=== PATIENT | male | born 1940 | race Caucasian/White ===

== ENCOUNTER 2025-07-04 10:39 | Inpatient (IN) | payer OTHER, SELFPAY ==
[2025-07-04] VITALS (12 sets, daily range): BP systolic 115–173; BP diastolic 37–66; BMI 30.5
[2025-07-04] MEDS: ZOFRAN 4 MG IV (06:17)
[2025-07-04] MEDS: MORPHINE SULFATE 4 MG IV (06:18)
--- NOTE | 2025-07-04 06:25 | ED.GENMED ---
History of Present Illness
General
Chief Complaint: Flank Pain
Source: patient
Exam Limitations: none
Time Seen by Provider: 07/04/25 06:07
Nursing documentation reviewed up to this point in time: agreed with
History of Present Illness
History of Present Illness:
The patient is an 85-year-old man with a past medical history of A-fib, hypertension and hyperlipidemia who comes in with complaints of fairly sudden onset of right flank pain that started at 8:00 last night and is associated with nausea. Patient
reports constant severe pain which she describes as 10 out of 10. There is no radiation of pain. He denies vomiting, chills and fever.
Past History
Past History
ED Past Medical History: Arrthythmia, CAD, HTN, Hypercholesterolemia and Other (Gastritis)
ED Past Surgical History: Bowel resection and Cardiac (Stent)
Social History
Tobacco: Former smoker
Alcohol: Other (One glass of wine)
Drug: None
Personal: Other
Living: with family
Employment: Other
Family History
Family History: Other
Review of Systems
Review of Systems
Allergies reviewed?: Yes
All Other Systems: ROS reviewed and negative except as documented in HPI and ROS
Constitutional: Reports no symptoms
EENT: Reports no symptoms
Respiratory: Reports no symptoms
Cardiac: Reports no symptoms
ABD/GI: Reports nausea
: Reports flank pain
Musculoskeletal: Reports no symptoms
Skin: Reports no symptoms
Neurological: Reports no symptoms
Endocrine: Reports no symptoms
Hematologic/Lymphatic: Reports no symptoms
Psychiatric: Reports no symptoms
Phy Exam
Physical Exam
Physical Exam:
Physical Exam
General: Patient appears nontoxic but uncomfortable appearing, he is holding his right flank.
Neck: supple. no meningeal signs. normal posterior pharynx
Heart: s1/s2 regular rate and rhythm,
Lungs: no acute respiratory distress. clear bilaterally. No pulsatile mass
Abdomen: normal bowel sounds. not tender. no CVAT. No pulsatile mass
Neuro: alert and oriented. no focal neurological deficits
Skin: no rash
Psychiatric: well kept. interactive and cooperative
Extremities: no edema. no calf tenderness. negative homans. good distal pulses
Course
Orders/Labs/Results
Orders:
Orders
07/04/25 05:58
IV Insert/Care/Rem.- Treatment PRN
07/04/25 06:02
Urinalysis Reflex To Culture Urgent
Date Specimen was Collected: 07/04/25
Time Specimen was Collected: 05:59
Urine Microscopic Reflex Cult Urgent
Urine Culture Urgent
MARIAM Source: U
Specimen Description:
Date Specimen was Collected: 07/04/25
Time Specimen was Collected: 05:59
07/04/25 06:07
Complete Blood Count/With Diff Urgent
Comprehensive Metabolic Panel Urgent
07/04/25 06:15
Morphine Sulfate 4 mg .ROUTE .STK-MED ONE
Ondansetron Injectable [Zofran] 4 mg .ROUTE .STK-MED ONE
07/04/25 06:16
CT Abd/pel Without Iv Or Oral Urgent
Comment:
Reason For Exam: R flank pain
Morphine Sulfate 4 mg IV NOW STA
Ondansetron Injectable [Zofran] 4 mg IV NOW STA
07/04/25 07:44
0.9% Sodium Chloride 500 ml [Nss] 500 ml IV BOLUS
07/04/25 07:55
HYDROmorphone [Dilaudid] 0.5 mg IV NOW STA
07/04/25 09:37
HYDROmorphone [Dilaudid] 1 mg IV NOW STA
07/04/25 09:47
UROLOGY CONSULT Routine
Consulting Provider: Silvestre Ennis
Was physician already notified: Yes
Comment: 4.5 mm calculus at the right ureterovesical junction
07/04/25 09:48
Add On - Microbiology Urgent
Tests Added?: urine culture
07/04/25 10:00
CefTRIAXone [Rocephin] 1,000 mg IV Q24H
Abnormal Lab Results
07/04/25 07/04/25
06:02 06:07
WBC 10.9 H 10^3/uL
(4.8-10.8)
MPV 10.5 H fL
(7.4-10.4)
Absolute Neuts (auto) 8.6 H 10^3/uL
(1.4-6.5)
Neutrophils % 79.0 H %
(42.2-75.2)
Lymphocytes % 16.0 L %
(20.5-51.1)
Glucose 146 H mg/dl
(70-99)
Ur Occult Blood Reflex 2+ A
(Negative)
Urine RBC 7-10 A /HPF
(0-2)
Urine Bacteria (Reflex) Few A
(Negative)
Urine Albumin (Reflex) 2+ A
(Neg - Trace)
07/04/25 06:07
07/04/25 06:07
Vital Signs
Initial and Last Documented VS:
Initial Vital Signs
Temp Pulse Resp BP Pulse Ox
97.5 F 59 22 173/64 97
07/04/25 05:27 07/04/25 05:27 07/04/25 05:27 07/04/25 05:27 07/04/25 05:27
Last Documented Vital Signs
Temp Pulse Resp BP Pulse Ox
97.5 F 49 16 133/37 93
07/04/25 07:37 07/04/25 09:15 07/04/25 09:15 07/04/25 08:00 07/04/25 09:15
MDM/Problems Addressed
Differential Diagnosis Includes:
Acute pyelonephritis, acute renal colic, acute diverticulitis
MDM/Problems Addressed:
The patient presents with acute right flank pain and nausea
Chronic conditions affecting care: Arrhythmia
Acute Exacerbation and/or Progression of Chronic Illness: Arrhythmia
*Radiology
Radiology exam reviewed: radiology read reviewed
*Pulse Oximetry
SaO2: 97
Oxygen Mode of Delivery: Room air
Patient hypoxic: no
*EKG
Interpreted by ED Provider?: NA
*Cylinder Devalver Interpretation
Rate: normal
Interpretation: normal
Rhythm: sinus
*Critical Care Note
Total Time (30-74mins, 75-104mins- exclusive of procedures): Not Applicable
Data Reviewed
Review of Other/Old Records Reveals: Discharge Summary (Patient admitted with A-fib with RVR 2018)
Source: patient
Patient Management
Social determinants of health affecting care: Living situation and Strong social support
Discussion with other providers: Hospitalist
ED Attending Note
-
Portions of this chart may have been created with voice recognition software.� Occasional wrong word or��sound alike� substitutions may have occurred due to the inherent limitations of voice recognition software.
Discharge Plan
Departure
Patient Disposition: Admit
Date of Disposition: 07/04/25
Time of Disposition: 09:43
Admit to: Med/Surg
Presentation/result/management discussed w/ accepting MD/DO: Hospitalist
Patient with high blood pressure during this ER visit?: Yes
Condition: Good
Covid-19: Not Applicable
Discharge Problem:
Renal colic on right side
Prescriptions:
No Action
prednisone 20 MG tablet
20 mg PO DAILY@1200
rosuvastatin 10 MG tablet
10 mg PO HS
omeprazole magnesium [Prilosec OTC] 20 MG tablet,delayed release (DR/EC)
20 mg PO BID@0800,1200
prednisone 20 MG tablet
40 mg PO DAILY
acetaminophen [Tylenol Extra Strength] 500 MG tablet
500 - 1,000 mg PO Q4HPRN PRN (Reason: pain)
tamsulosin 0.4 MG capsule
0.4 mg PO DAILY Qty: 30 0RF
levofloxacin 500 MG tablet
500 mg PO DAILY Qty: 3 0RF
valsartan 320 MG tablet
320 mg PO DAILY
metoprolol tartrate 25 MG tablet
25 mg PO BID
aspirin 81 MG tablet,delayed release (DR/EC)
81 mg PO DAILY
colchicine 0.6 MG tablet
0.6 mg PO DAILY Qty: 14 0RF
Referrals:
Jose Hamilton DO [Family Provider, Family Practice]
Interventions
Interventions:
*Risk Screen - Suicide Last Done: 07/04/25 05:27
*General Assessment Last Done: 07/04/25 05:27
*Neglect/Abuse Screening Last Done: 07/04/25 05:27
*ED- Fall Risk Assessment Last Done: 07/04/25 05:58
*ED COVID-19 Vaccine History Last Done: 07/04/25 05:27
SV-Jlmgki-Uiumhekaoq Assessment Last Done: 07/04/25 05:54
ED-Male Genitourinary Assessment Last Done: 07/04/25 05:54
Discharge Date and Time
Print Language: AUSTRALIAN
[2025-07-04 06:31] LABS: Urine Character Slightly Cloudy (Clear)
[2025-07-04 06:35] LABS: Hematocrit 42.0 % (39.0-52.0); Hemoglobin 14.7 g/dL (13.0-18.0); Mean Corp Hgb Conc. 35.0 g/dL (33.0-37.0); Mean Corpuscular Volume 85.7 fL (80.0-94.0); Nucleated Red Blood Cells % 0 % (-); Platelet Count 173 10^3/uL (130-400); Red Cell Dist. Width 12.2 % (11.5-14.5)
[2025-07-04 06:39] LABS: Urine Squamous Cell None seen /LPF (Few)
[2025-07-04 06:45] LABS: ALT (SGPT) 19 U/L (0-50); AST (SGOT) 27 U/L (17-59); Albumin 4.8 g/dl (3.5-5.0); Alkaline Phosphatase 111 U/L (38-126); Blood Urea Nitrogen 19 mg/dl (9-20); Calcium 9.3 mg/dl (8.4-10.2); Carbon Dioxide 22 mmol/L (22-30); Chloride 107 mmol/L (98-107); Glucose 146 mg/dl (70-99); Potassium 4.3 mmol/L (3.5-5.1); Sodium 138 mmol/L (135-145); Total Protein 7.6 g/dl (6.3-8.2); eGFR > 60.00
[2025-07-04 06:48] LABS: Urine White Cell None Seen /HPF (0-5)
[2025-07-04] MEDS: NSS 500 IV (08:08)
[2025-07-04] MEDS: DILAUDID 0.5 MG IV (08:10)
--- NOTE | 2025-07-04 10:21 | HPS.HSE ---
Family Physician
-
Family Physician: Jose Hamilton
Chief Complaint
-
R flank pain
History of Present Illness
85yo M with PMHx of PAF not on AC, pericarditis, prostatitis, spematocele, CAD s/p PCI, HX of Salmonella UTI came with sudden onset of R flank pain traveling towards his groin started 12h before admission found 4.5 mm calculus at the right
ureterovesical junction with associated mild right hydronephrosis. No recent fevers noted. Due to poor pain control - admitted to the hospital
Medical History
Past Medical History
Past Medical History: Reports Other
Additional Past Medical History:
see above
Past Surgical History: Reports None
Social History
Tobacco: Non-smoker
Alcohol: Occasional
Drug: None
Family History
Family History: Not pertinent
Allergies / Home Medications
Allergies reflects when Allergies were last updated in [facility].
Home Medications with original date entered in [facility]
Allergy/Medication List:
Allergies
Allergy/AdvReac Type Severity Reaction Status Date / Time
No Known Allergies Allergy Verified 07/04/25 05:30
Home Medications - not updated at the time of admission
acetaminophen 500 mg tablet (Tylenol Extra Strength) 500 - 1,000 mg PO Q4HPRN PRN pain 12/11/17
omeprazole magnesium 20 mg tablet,delayed release (Prilosec OTC) 20 mg PO BID@0800,1200 with prednisone 12/11/17
prednisone 20 mg tablet 20 mg PO DAILY@1200 12/11/17
prednisone 20 mg tablet 40 mg PO DAILY Inflammation 12/11/17
rosuvastatin 10 mg tablet 10 mg PO HS 12/11/17
levofloxacin 500 mg tablet 500 mg PO DAILY ##3 12/14/17
tamsulosin 0.4 mg capsule 0.4 mg PO DAILY ##30 12/14/17
aspirin 81 mg tablet,delayed release 81 mg PO DAILY 12/16/17
colchicine 0.6 mg tablet 0.6 mg PO DAILY #14 tabs 12/16/17
metoprolol tartrate 25 mg tablet 25 mg PO BID 12/16/17
valsartan 320 mg tablet 320 mg PO DAILY 12/16/17
Review of Systems
-
History Source: Patient
A 12 point ROS was completed and negative except as noted: Yes
: Reports See HPI
Physical Exam
Vital Signs
Vital Signs
Temp Pulse Resp BP Pulse Ox
97.5 F 49 16 133/37 93
07/04/25 07:37 07/04/25 09:15 07/04/25 09:15 07/04/25 08:00 07/04/25 09:15
Physical Exam
General: No Apparent Distress, Comfortable and Conversant
HEENT: NormoCephalic, Anicteric and Moist mucous membranes
Respiratory: Clear; No Wheezes or Crackles
Cardiac: S1/S2 and Regular Rhythm; No Tachycardia
GI: Soft, Non Tender and Non Distended
Genito-urinary: No costovertebral tender
Musculoskeletal: No Clubbing, No Cyanosis and No Edema
Skin: Warm; No Rash or Jaundice
Neuro: Awake, Alert, Oriented and AO x 3
Psych: Calm
Laboratory Results
-
07/04/25 06:07
07/04/25 06:07
Laboratory Results
Total Bilirubin 0.8 mg/dl (0.2-1.3) 07/04/25 06:07
AST 27 U/L (17-59) 07/04/25 06:07
ALT 19 U/L (0-50) 07/04/25 06:07
Alkaline Phosphatase 111 U/L (38-126) 07/04/25 06:07
Data Reviewed
-
CT Scan: Report Reviewed by me
Lab Data: Labs Reviewed by me
Impression/Plan
-
A/P:
#R UVJ obstructing nephrolithiasis
#mild right hydronephrosis.
#BPH
#Simple upper pole left renal cyst
#Leukocytosis
IVF
Tamsulosin
Ceftriaxone pending Ucx
Pain mgmt
Urology consult
Follow Cr
check coag panel for possible intervention, keep NPO meanwhile
#CAD s/p PCI
#HLD
#PAF
#Essential HTN
#GERD
telemetry
cont home meds
DVT ppx Lovenox
DNR/DNI - discussed in details with patient
I have spent at least 75min reviwing chart, test results, communication with conultants and providing direct patient care
--- NOTE | 2025-07-04 10:37 | CM ---
CM reviewed chart, patient presents to ED with complaints of fairly sudden onset of right flank pain that started at 8:00 last night and is associated with nausea.
Patient seen bedside, initial assessment completed. Patient resides with his step-son in a multiple level home, bedroom on second floor, one step to enter home. Patient denies use of DME, denies VN/SNF hx. PCP Jose Hamilton, Pharmacy [facility],
confirms prescription coverage. Patient denies insecurities at home. CM will continue to follow for all discharge planning needs.
Plan; home, watch for potential VN needs
[2025-07-04] MEDS: DILAUDID 1 MG IV (10:46)
[2025-07-04] MEDS: ROCEPHIN 1000 MG IV (10:47)
--- NOTE | 2025-07-04 10:57 | CONS.URO ---
Consultation
-
Date/Time Consultation Performed: 07/04/25 1045
Performing Provider: Peffer
Reason for Consultation: Kidney stone
Medical History
History of Present Illness
85M admitted with intractable pain from 4mm R distal ureteral stone
No prior kidney stone episodes
No fever/chills
No signs of sepsis
Past Medical History
Past Medical History: Other (PAF not on AC, pericarditis, prostatitis, spematocele, CAD s/p PCI)
Social History
Tobacco: Non-smoker
Alcohol: Occasional
Family History
Family History: Reviewed & Not Pertinent
Allergies/Home Medications
Allergies
Allergy/AdvReac Type Severity Reaction Status Date / Time
No Known Allergies Allergy Verified 07/04/25 05:30
Home Medications
�Medication �Instructions �Recorded �Confirmed �Type
acetaminophen 500 mg tablet 500 - 1,000 mg PO Q4HPRN PRN pain 12/11/17 12/16/17 History
(Tylenol Extra Strength)
omeprazole magnesium 20 mg 20 mg PO BID@0800,1200 with 12/11/17 12/16/17 History
tablet,delayed release (Prilosec prednisone
OTC)
prednisone 20 mg tablet 20 mg PO DAILY@1200 12/11/17 12/16/17 History
prednisone 20 mg tablet 40 mg PO DAILY Inflammation 12/11/17 12/16/17 History
rosuvastatin 10 mg tablet 10 mg PO HS 12/11/17 12/16/17 History
levofloxacin 500 mg tablet 500 mg PO DAILY ##3 12/14/17 12/16/17 Rx
tamsulosin 0.4 mg capsule 0.4 mg PO DAILY ##30 12/14/17 12/16/17 Rx
aspirin 81 mg tablet,delayed 81 mg PO DAILY 12/16/17 12/16/17 History
release
colchicine 0.6 mg tablet 0.6 mg PO DAILY #14 tabs 12/16/17 Rx
metoprolol tartrate 25 mg tablet 25 mg PO BID 12/16/17 12/16/17 History
valsartan 320 mg tablet 320 mg PO DAILY 12/16/17 12/16/17 History
Physical Exam
Vital Signs
Vital Signs
Temp Pulse Resp BP Pulse Ox
97.5 F 49 16 133/37 93
07/04/25 07:37 07/04/25 09:15 07/04/25 09:15 07/04/25 08:00 07/04/25 09:15
Lab / Testing Results
Laboratory Results
07/04/25 06:07
07/04/25 06:07
Physical Exam
General: Well Developed, Well Nourished and No Apparent Distress
Respiratory: Non Labored Respirations
Genito-urinary: Costovertebral Angle Tend
Neuro: AO x 3
Psych: Calm and Intact Judgement
Assessment / Plan
-
85M with intractable pain from R distal ureteral stone
No signs of infection
- OR today for ureteroscopy, stone removal, stent placement
- Ceftriaxone for prophylaxis
- Discharge today post procedure is likely appropriate
[2025-07-04 11:22] LABS: APTT 31.4 Sec (23.4-35.0); INR 1.20; PT 15.5 Sec (11.4-14.6)
--- NOTE | 2025-07-04 13:53 | W.DCSUMMARY ---
Discharge Summary
Discharge Data
Date of Admission: 07/04/25
Date of Discharge: 07/04/25
-
Pending Results: No
Hospital Course
85yo M with PMHx of PAF not on AC, pericarditis, prostatitis, spermatocele, CAD s/p PCI, HX of Salmonella UTI came with sudden onset of R flank pain traveling towards his groin started 12h before admission found 4.5 mm calculus at the right
ureterovesical junction with associated mild right hydronephrosis. No recent fevers noted. Due to poor pain control - admitted to the hospital. Urology did stone extraction and JJ stent and ok with same day d/c home. PAtient recovering well and
medically stable to be d/c. 3 days cipro indicated with leukocytosis. Wide awake after procedure seen in PACU and RN to assess ability to ambulate before d/c as indicated in discharge order. Recommended to avoid driving on the day of d/c - patient
will call his daughter
I have spent at least 75min reviewing chart, test results, communication with consultants and providing direct patient care
Patient was managed for:
#R UVJ obstructing nephrolithiasis
#mild right hydronephrosis.
#BPH
#Simple upper pole left renal cyst
#Leukocytosis
#CAD s/p PCI
#HLD
#PAF
#Essential HTN
#GERD
Discharge Plan
-
Patient Disposition: Home (Routine Discharge)
Discharge Diagnosis/Procedures: nephrolithiasis
Diet: Low Cholesterol
Activity: As tolerated
Activity Restrictions/Additional Instructions:
Urology office will call to schedule stent removal in about [address] Ennis
Urology office: [phone]
Referrals:
Jose Hamilton DO [Family Provider, [facility]]
Silvestre Ennis MD [Active, Urology] - in two weeks
Referral Note: for stone extraction
Prescriptions:
New
ciprofloxacin HCl 500 mg tablet
500 mg PO Q12H Qty: 6 0RF
oxycodone 5 mg capsule
5 mg PO Q8H PRN (Reason: Pain) Qty: 6 0RF
Continued
rosuvastatin 10 MG tablet
10 mg PO HS
omeprazole magnesium [Prilosec OTC] 20 MG tablet,delayed release (DR/EC)
20 mg PO BID@0800,1200
acetaminophen [Tylenol Extra Strength] 500 MG tablet
500 - 1,000 mg PO Q4HPRN PRN (Reason: pain)
tamsulosin 0.4 MG capsule
0.4 mg PO DAILY Qty: 30 0RF
valsartan 320 MG tablet
320 mg PO DAILY
metoprolol tartrate 25 MG tablet
25 mg PO BID
aspirin 81 MG tablet,delayed release (DR/EC)
81 mg PO DAILY
colchicine 0.6 MG tablet
0.6 mg PO DAILY
Discontinued
prednisone 20 MG tablet
20 mg PO DAILY@1200
prednisone 20 MG tablet
40 mg PO DAILY
levofloxacin 500 MG tablet
500 mg PO DAILY
Discharge Date and Time
Print Language: NEPALI
--- NOTE | 2025-07-04 15:01 | PTCARENOTE ---
Pt arrived 1445 from PACU. Pt was able to ambulate to bed. VSS. No complaints of pain. Oriented to room and call ahumada. bed locked and in lowest position. care ongoing
[2025-07-04] MEDS: FLOMAX 0.4 MG PO (17:01)
== END 2025-07-04 17:38 | disposition home or self-care (01) | DRG 661 ==
LOC: 2 SOUTH 10:39
PROVIDERS: Emergency Medicine; Internal Medicine Cardiovascular Disease; ADMITTING PHYSICIAN Internal Medicine; CONSULT PHYSICIAN Urology; EMERGENCY PHYSICIAN Emergency Medicine; FAMILY PHYSICIAN Family Medicine
PROC: 0TC68ZZ Extirpation of Matter from Right Ureter, Via Natural or Artificial Opening Endoscopic (ICD-10-PCS; 2025-07-04)
PROC: 0T768DZ Dilation of Right Ureter with Intraluminal Device, Via Natural or Artificial Opening Endoscopic (ICD-10-PCS; 2025-07-04)
DX: N13.2 Hydronephrosis with renal and ureteral calculous obstruction (principal); N28.1 Cyst of kidney, acquired; N40.0 Benign prostatic hyperplasia without lower urinary tract symptoms; D72.829 Elevated white blood cell count, unspecified; I25.10 Atherosclerotic heart disease of native coronary artery without angina pectoris; Z95.5 Presence of coronary angioplasty implant and graft; I10 Essential (primary) hypertension; I48.0 Paroxysmal atrial fibrillation; K21.9 Gastro-esophageal reflux disease without esophagitis; Z86.19 Personal history of other infectious and parasitic diseases; Z87.891 Personal history of nicotine dependence; E78.00 Pure hypercholesterolemia, unspecified; N32.89 Other specified disorders of bladder; Z79.82 Long term (current) use of aspirin; Z79.899 Other long term (current) drug therapy
CPT/HCPCS: 74018; 74176; 76000; 80053; 81003; 81015; 82365; 85025; 85610; 85730; 87086; 93005; 96361; 96374; 96375; 96376; 99285; C2617

== ENCOUNTER 2025-07-06 16:49 | Emergency (ER) | payer OTHER, SELFPAY ==
[2025-07-06 16:57] VITALS: BP 106/71
--- NOTE | 2025-07-06 17:20 | ED.GENMED ---
History of Present Illness
General
Chief Complaint: Male Genito-Urinary Symptoms
Source: patient
Exam Limitations: none
Time Seen by Provider: 07/06/25 17:09
Nursing documentation reviewed up to this point in time: agreed with
History of Present Illness
History of Present Illness:
85-year-old male Phoenix placed a few days ago, for retention trouble urinating despite drinking fluid, feels pressure in his bladder scheduled to see urology Dr. Ennis tomorrow does not look like any urine in the bag, no fevers no nausea vomit
Past History
Past History
ED Past Medical History: Arrthythmia, CAD, HTN, Hypercholesterolemia and Other (Gastritis)
ED Past Surgical History: Bowel resection and Cardiac (Stent)
Social History
Tobacco: Former smoker
Alcohol: Other (One glass of wine)
Drug: None
Personal: Other
Living: with family
Employment: Other
Family History
Family History: Other
Phy Exam
Physical Exam
Physical Exam:
Physical Exam
General: Nontoxic 85-year-old looks uncomfortable
Neck: No jaundice
Heart: s1/s2 regular rate and rhythm, no murmur. equal radial pulses.
Lungs: no acute respiratory distress. clear bilaterally
Abdomen: Suprapubic tenderness
Neuro: alert and oriented. no focal neurological deficits
Skin: no rash
Psychiatric: well kept. interactive and cooperative
Extremities: no edema.
Course
Orders/Labs/Results
Orders:
Orders
07/06/25 17:18
Phoenix Placement- Treatment ONCE
Reason for insertion: Outlet obstruction
07/06/25 17:33
Urinalysis Reflex To Culture Urgent
Date Specimen was Collected: 07/06/25
Time Specimen was Collected: 17:28
Urine Microscopic Reflex Cult Urgent
Urine Culture Urgent
MARIAM Source: U
Specimen Description:
Date Specimen was Collected: 07/06/25
Time Specimen was Collected: 17:28
Abnormal Lab Results
07/06/25
17:33
Ur Occult Blood Reflex 4+ A
(Negative)
Urine Nitrite (Reflex) Positive A
(Negative)
Leukocyte Esterase Rfl 2+ A
(Negative)
Urine RBC >100 A /HPF
(0-2)
Urine Bacteria (Reflex) Moderate A
(Negative)
Urine Albumin (Reflex) 3+ A
(Neg - Trace)
Vital Signs
Initial and Last Documented VS:
Initial Vital Signs
Temp Pulse Resp BP Pulse Ox
98.9 F 85 16 106/71 95
07/06/25 16:57 07/06/25 16:57 07/06/25 16:57 07/06/25 16:57 07/06/25 16:57
Last Documented Vital Signs
Temp Pulse Resp BP Pulse Ox
98.5 F 81 16 157/73 96
07/06/25 17:44 07/06/25 17:44 07/06/25 17:44 07/06/25 17:44 07/06/25 17:44
MDM/Problems Addressed
Differential Diagnosis Includes:
Functioning Phoenix clogged Phoenix, UTI retention
MDM/Problems Addressed:
Trouble urine
Chronic conditions affecting care:
Phoenix catheter
Acute Exacerbation and/or Progression of Chronic Illness:
Phoenix catheter
*Pulse Oximetry
SaO2: 95
Oxygen Mode of Delivery: Room air
Patient hypoxic: no
*Critical Care Note
Total Time (30-74mins, 75-104mins- exclusive of procedures): Not Applicable
Update Note
Update Note:
20 Prydeinig Phoenix placed by RN 650 cc of urine sent for culture
ED Attending Note
-
Portions of this chart may have been created with voice recognition software.� Occasional wrong word or��sound alike� substitutions may have occurred due to the inherent limitations of voice recognition software.
Discharge Plan
Departure
Patient Disposition: Home (Routine Discharge)
Date of Disposition: 07/06/25
Time of Disposition: 18:15
Patient with high blood pressure during this ER visit?: No
Condition: Good
Discharge Problem:
Bladder outlet obstruction, Acute urinary retention, Complication, blocked Phoenix catheter
Instructions: How to Care for Your Phoenix Catheter, Male
Prescriptions:
No Action
rosuvastatin 10 MG tablet
10 mg PO HS
omeprazole magnesium [Prilosec OTC] 20 MG tablet,delayed release (DR/EC)
20 mg PO BID@0800,1200
acetaminophen [Tylenol Extra Strength] 500 MG tablet
500 - 1,000 mg PO Q4HPRN PRN (Reason: pain)
valsartan 320 MG tablet
320 mg PO DAILY
metoprolol tartrate 25 MG tablet
25 mg PO BID
aspirin 81 MG tablet,delayed release (DR/EC)
81 mg PO DAILY
ciprofloxacin HCl 500 mg tablet
500 mg PO Q12H Qty: 6 0RF
oxycodone 5 mg capsule
5 mg PO Q8H PRN (Reason: Pain) Qty: 6 0RF
tamsulosin 0.4 mg Capsule
0.4 mg PO HS Qty: 30 0RF
Referrals:
Jose Hamilton DO [Family Provider, Family Practice]
Activity Restrictions/Additional Instructions:
Go to see Dr. Ennis tomorrow as scheduled
Interventions
Interventions:
*Risk Screen - Suicide Last Done: 07/06/25 16:57
*General Assessment Last Done: 07/06/25 17:44
*Neglect/Abuse Screening Last Done: 07/06/25 16:57
*ED- Fall Risk Assessment Last Done: 07/06/25 17:44
*ED COVID-19 Vaccine History Last Done: 07/06/25 17:44
ED-Male Genitourinary Assessment Last Done: 07/06/25 17:44
Discharge Date and Time
Print Language: ARABIC
[2025-07-06 17:33] VITALS: BMI 28.7
[2025-07-06 17:44] VITALS: BP 157/73
[2025-07-06 17:49] LABS: Urine Character Cloudy (Clear)
[2025-07-06 18:06] LABS: Urine Red Blood Cell >100 /HPF (0-2); Urine Squamous Cell 0-2 /LPF (Few); Urine White Cell 0-2 /HPF (0-5)
[2025-07-06 19:00] VITALS: BP 154/71
== END 2025-07-06 19:26 | disposition home or self-care (01) ==
LOC: EMR 16:49
PROVIDERS: EMERGENCY PHYSICIAN Emergency Medicine; FAMILY PHYSICIAN Family Medicine
DX: T83.091A Other mechanical complication of indwelling urethral catheter, initial encounter (principal); R33.9 Retention of urine, unspecified; R10.9 Unspecified abdominal pain; N32.0 Bladder-neck obstruction; I10 Essential (primary) hypertension; I25.10 Atherosclerotic heart disease of native coronary artery without angina pectoris; E78.00 Pure hypercholesterolemia, unspecified; Z95.5 Presence of coronary angioplasty implant and graft; Z87.891 Personal history of nicotine dependence; Z98.0 Intestinal bypass and anastomosis status
CPT/HCPCS: 99284; 51702; 81003; 81015; 87086